=== PATIENT | female | born 1965 | race Caucasian/White ===

== ENCOUNTER 2019-01-11 21:22 | Emergency (ER) | payer OTHER ==
[~2019-01-11] VITALS: Ht 170.2 cm; Wt 83.6 kg
[2019-01-11 21:24] VITALS: BP 145/89
[2019-01-11] MEDS ORDERED: HYDROcodone/acetaminophen 5mg/325mg tablet PO ONE (22:20)
[2019-01-11] MEDS ORDERED: NAPR-56 PO (22:21)
[2019-01-11] MEDS ORDERED: PENI250T2 PO (22:21)
== END 2019-01-11 22:45 | disposition home or self-care (01) ==
LOC: ER 21:23
DX: K02.9 Dental caries, unspecified (principal); F17.200 Nicotine dependence, unspecified, uncomplicated; Z79.2 Long term (current) use of antibiotics; Z79.899 Other long term (current) drug therapy
CPT/HCPCS: 99283

== ENCOUNTER 2019-10-04 01:40 | Emergency (ER) | payer MEDICAID, OTHER ==
[~2019-10-04] VITALS: Ht 170.2 cm; Wt 90.9 kg
[2019-10-04 02:40] LABS: CLARITY,URINE CLEAR (Clear); COLOR,URINE YELLOW (Yellow); GLUCOSE, URINE NEGATIVE (Neg); KETONES,URINE NEGATIVE (Neg); LEUKOCYTE ESTERASE ,URINE TRACE (Neg); NITRITES, URINE NEGATIVE (Neg); OCCULT BLOOD,URINE SMALL (Neg); PH,URINE 5.5 (4.8-8.0); PROTEIN,URINE NEGATIVE (Neg); UROBILINOGEN,URINE 0.2 E.U/dL (0.2-1.0)
[2019-10-04 02:46] LABS: UA COLLECTION TYPE CLN CATCH MIDSTREAM
[2019-10-04 02:47] LABS: BACTERIA,URINE 1+ /HPF (Neg); RBC,URINE 0-2 /HPF (0-2); SQUAMOUS EPITHELIAL CELL,UR FEW /LPF (FEW); WBC,URINE 0-4 /HPF (0-4)
[2019-10-04] MEDS ORDERED: ondansetron/PF 4mg/2ml inj IV ONE (03:15)
[2019-10-04] MEDS ORDERED: morphine 4 MG/ML inj SYRINge IV ONE (03:15)
[2019-10-04 03:30] LABS: BASOPHILS # (AUTO) 0.1 X10'3 (0-0.2); BASOPHILS % (AUTO) 0.9 % (0-1); EOSINOPHILS # (AUTO) 0.2 X10'3 (0-0.9); EOSINOPHILS % (AUTO) 2.2 % (0-6); HEMATOCRIT 40.2 % (35.0-45.0); HEMOGLOBIN 12.9 g/dl (12.0-16.0); LYMPHOCYTES # (AUTO) 2.4 X10'3 (1.1-4.8); LYMPHOCYTES % (AUTO) 24.2 % (21-51); MEAN CORPUSCULAR HEMOGLOBIN 27.4 PG (27.0-31.0); MEAN CORPUSCULAR VOLUME 85.6 FL (78-98); MEAN PLATELET VOLUME 8.8 FL (7.4-10.4); MONOCYTES # (AUTO) 0.5 X10'3 (0-0.9); MONOCYTES % (AUTO) 5.2 % (2-12); NEUTROPHILS # (AUTO) 6.7 X10'3 (1.8-7.7); NEUTROPHILS % (AUTO) 67.5 % (42-75); PLATELET COUNT 276 X10'3 (140-440); RED BLOOD COUNT 4.69 X10'6 (4.20-5.60); RED CELL DISTRIBUTION WIDTH 15.2 % (11.5-14.5); WHITE BLOOD COUNT 9.9 X10'3 (4.5-11.0)
[2019-10-04 03:45] LABS: HCG SERUM QL NEGATIVE
[2019-10-04 03:47] LABS: ALANINE AMINOTRANSFERASE 20 U/L (12-78); ALBUMIN 3.7 G/DL (3.4-5.0); ALBUMIN/GLOBULIN RATIO 1.1 (1.1-1.5); ALKALINE PHOSPHATASE 73 IU/L (46-116); ANION GAP 10 (8-16); ASPARTATE AMINO TRANSFERASE 18 U/L (10-37); BILIRUBIN,TOTAL 0.2 MG/DL (0.1-1.0); BLOOD UREA NITROGEN 13 MG/DL (7-18); BUN/CREATININE RATIO 10.6 (6.6-38.0); CALCIUM 9.4 MG/DL (8.5-10.1); CHLORIDE 107 MMOL/L (99-107); CREATININE 1.23 MG/DL (0.40-0.90); GLUCOSE 103 MG/DL (70-104); POTASSIUM 3.9 MMOL/L (3.5-5.1); SODIUM 143 MMOL/L (135-145); TOTAL CARBON DIOXIDE 26.4 MMOL/L (24-32); TOTAL PROTEIN 7.2 G/DL (6.4-8.2); eGFR 46 ML/MIN
[2019-10-04] MEDS: normal saline 1000ML IV soln IVB ONE ×2 (03:47→04:01)
[2019-10-04 04:31] VITALS: BP 117/78
== END 2019-10-04 04:32 | disposition home or self-care (01) ==
LOC: ER 01:40
DX: D21.9 Benign neoplasm of connective and other soft tissue, unspecified (principal); N83.202 Unspecified ovarian cyst, left side; R11.10 Vomiting, unspecified
CPT/HCPCS: 36415; 80053; 81001; 84703; 85025; 87088; 96374; 96375; 99284; J2270; J2405; J7030

== ENCOUNTER 2020-08-07 01:43 | Emergency (ER) | payer MEDICAID ==
[~2020-08-07] VITALS: Ht 170.2 cm; Wt 90.9 kg
[2020-08-07] MEDS ORDERED: acetaminophen 325mg tablet PO ONE (02:35)
--- NOTE | 2020-08-07 04:39 | NUR ---
VASCULAR US IN PROGRESS NOW.
[2020-08-07] MEDS ORDERED: APIX5TAB3 PO (04:43)
[2020-08-07 05:19] VITALS: BP 134/82
== END 2020-08-07 05:32 | disposition home or self-care (01) ==
LOC: ER 01:43
DX: I82.402 Acute embolism and thrombosis of unspecified deep veins of left lower extremity (principal); R60.0 Localized edema; Z79.01 Long term (current) use of anticoagulants
CPT/HCPCS: 93971; 99284

== ENCOUNTER 2020-08-10 19:21 | Emergency (ER) | payer MEDICAID ==
[~2020-08-10] VITALS: Ht 170.2 cm; Wt 90.0 kg
[~2020-08-10 19:21] MED LIST: APIX5TAB3 PO
[2020-08-10 20:39] VITALS: BP 131/89
== END 2020-08-10 20:38 | disposition home or self-care (01) ==
LOC: ER 19:22
DX: I82.402 Acute embolism and thrombosis of unspecified deep veins of left lower extremity (principal); M79.662 Pain in left lower leg; R51.9 Headache, unspecified; R42 Dizziness and giddiness; Z88.5 Allergy status to narcotic agent; Z79.899 Other long term (current) drug therapy
CPT/HCPCS: 99281; 99284

== ENCOUNTER 2020-10-20 14:55 | Emergency (ER) | payer MEDICAID ==
[~2020-10-20] VITALS: Ht 172.7 cm; Wt 86.4 kg
[2020-10-20 17:25] VITALS: BP 125/89
== END 2020-10-20 17:25 | disposition home or self-care (01) ==
LOC: ER 15:00
DX: I82.402 Acute embolism and thrombosis of unspecified deep veins of left lower extremity (principal); Z88.5 Allergy status to narcotic agent
CPT/HCPCS: 93971; 99284